=== PATIENT | male | born 1960 | race African-American/Black ===

== ENCOUNTER 2017-09-21 13:09 | Inpatient (IN) ==
[2017-09-21] MEDS ORDERED: ONDANSETRON 4 MG/2 ML VIAL IV PRN (13:57)
[2017-09-21] MEDS ORDERED: MAGNESIUM SULF RIDER 4 GM in PREMIX 1 EACH IV PRN (13:57)
[2017-09-21] MEDS ORDERED: MORPHINE 4 MG/1 ML VIAL IV PRN (13:57)
[2017-09-21] MEDS ORDERED: MAGNESIUM SULF RIDER 2 GM in PREMIX 1 EACH IV PRN (13:57)
[2017-09-21] MEDS ORDERED: ACETAMINOPHEN 325 MG TABLET PO PRN (13:57)
[2017-09-21] MEDS ORDERED: DOCUSATE SODIUM 100 MG CAPSULE PO PRN (13:57)
[2017-09-21] MEDS ORDERED: MONTELUKAST 10 MG TABLET PO SCH (14:30)
[2017-09-21 14:47] LABS: Basophils % 0.2 % (0.0-0.8); Eosinophils % 0.2 % (0.00-10.9); Hematocrit 44.6 VOL% (42.0-52.0); Hemoglobin 13.9 GM/DL (14.0-18.0); Immature Granulocytes % 6.6 %; Immature Granulocytes Absolute 0.87 #; Lymphocytes % 7.8 % (21.2-54.2); Mean Corpuscular HGB Conc 31.2 GM/DL (32-36); Mean Corpuscular Hemoglobin 28 PG (27-34); Mean Corpuscular Volume 89.9 FL (87-102); Mean Platelet Volume 11.2 FL (9.6-12.0); Monocytes # 1.2 10*3/uL (0.11-0.8); Monocytes % 8.7 % (1.7-12.7); Neutrophils # 10.2 10*3/uL (1.4-7.4); Neutrophils % 76.5 % (38.7-73.9); Platelet Count 134 T/CUMM (130-400); Red Blood Count 4.96 MC/CUMM (3.8-5.5); Red Cell Distribution Width 14.5 % (9.3-17.3); White Blood Count 13.3 T/CUMM (4-12)
[2017-09-21 15:11] LABS: Calcium 9.5 MG/DL (8.5-10.1); Osmolality,Calculated 270.1 MOS/KG (273-304); Potassium 4.2 MMOL/L (3.5-5.1); Thyroid Stimulating Hormone 0.646 uIU/ml (0.358-3.74)
[2017-09-21 15:25] LABS: Apearance,Urine CLOUDY (Clear); Bilirubin,Urine Negative (Negative); Blood, Urine Moderate mg/dL (Negative); Glucose,Urine (UA) Negative (Negative); Ketones,Urine Negative (Negative); Nitrite,Urine Negative (Negative); Protein,Urine Negative; RBC,Urine 18 /HPF (0-4); Squamous Epithelial Cell,Urine Occasional /HPF (0-10); Urine Color Yellow (Yellow); Urine Specific Gravity 1.011 (1.001-1.035); WBC,Urine 81 /HPF (0-6)
[2017-09-21] MEDS: PANTOPRAZOLE 40 MG TABLET PO SCH (15:31)
[2017-09-21] MEDS: BUDESONIDE/FORMOTEROL 160-4.5 INHALER 6 GM INH SCH ×2 (15:32→21:19)
[2017-09-21] MEDS ORDERED: NITROGLYCERIN SL 0.4 MG TABLET SL PRN (16:00)
[2017-09-21 16:01] LABS: Troponin I Only 0.019 NG/ML (0.00-0.045)
[2017-09-21 16:23] LABS: Band Neutrophils 3 % (0-10); Eosinophils 5 % (0-10); Lymphocytes 4 % (20-55); Segmented Neutrophils 76 % (50-85); Total Cells Counted 100
[2017-09-21 16:24] LABS: Macrocytosis Slight
[2017-09-21 16:25] LABS: Platelet Estimate Adequate
[2017-09-21 16:51] LABS: ABG Base Excess 9.6 MMOL/L (-2.5-2.5); ABG HCO3 33.2 MMOL/L (20-26); ABG Oxygen Saturation 92.7 % (95-100); ABG PCO2 54.3 MM HG (35-48); ABG PH 7.431 (7.35-7.45); ABG PO2 67.4 MM HG (80-95); ABG TCO2 31.1 MMOL/L (23-27)
[2017-09-21] MEDS: LEVOFLOXACIN INJ 500 MG in PREMIX 1 EACH IV SCH (19:00)
[2017-09-21 19:01] LABS: Troponin I Only 0.022 NG/ML (0.00-0.045)
[2017-09-21] MEDS: ALBUTEROL/IPRATROPIUM 3 ML NEB RESP TX SCH (19:54)
[2017-09-21] MEDS ORDERED: ROSUVASTATIN 20 MG TABLET PO SCH (21:00)
[2017-09-21] MEDS: MONTELUKAST 10 MG TABLET PO SCH (21:19)
[2017-09-22 00:22] LABS: Troponin I Only 0.022 NG/ML (0.00-0.045)
[2017-09-22] MEDS: ALBUTEROL/IPRATROPIUM 3 ML NEB RESP TX SCH ×4 (01:10→19:34)
[2017-09-22 04:47] LABS: ABG Base Excess 8.5 MMOL/L (-2.5-2.5); ABG HCO3 35.6 MMOL/L (20-26); ABG Oxygen Saturation 92.8 % (95-100); ABG PCO2 60.2 MM HG (35-48); ABG PO2 73.1 MM HG (80-95); ABG TCO2 37.5 MMOL/L (23-27)
[2017-09-22 05:45] LABS: Basophils % 0.2 % (0.0-0.8); Eosinophils % 0.2 % (0.00-10.9); Hematocrit 42.1 VOL% (42.0-52.0); Hemoglobin 13.1 GM/DL (14.0-18.0); Immature Granulocytes % 6.2 %; Immature Granulocytes Absolute 0.62 #; Lymphocytes # 0.9 10*3/uL (1.4-4.0); Lymphocytes % 8.7 % (21.2-54.2); Mean Corpuscular HGB Conc 31.1 GM/DL (32-36); Mean Corpuscular Hemoglobin 28 PG (27-34); Mean Corpuscular Volume 89.8 FL (87-102); Mean Platelet Volume 11.4 FL (9.6-12.0); Monocytes % 9.6 % (1.7-12.7); Neutrophils # 7.6 10*3/uL (1.4-7.4); Neutrophils % 75.1 % (38.7-73.9); Platelet Count 108 T/CUMM (130-400); Red Blood Count 4.69 MC/CUMM (3.8-5.5); Red Cell Distribution Width 14.5 % (9.3-17.3); White Blood Count 10.1 T/CUMM (4-12)
[2017-09-22 06:06] LABS: Hypochromasia 1+; Lymphocytes 12 % (20-55); Microcytosis 1+; Ovalocytes Slight; Segmented Neutrophils 81 % (50-85); Total Cells Counted 100
[2017-09-22 06:07] LABS: Platelet Estimate Decreased
[2017-09-22 06:11] LABS: Calcium 9.7 MG/DL (8.5-10.1); Osmolality,Calculated 271.1 MOS/KG (273-304); Potassium 4.4 MMOL/L (3.5-5.1)
[2017-09-22] MEDS: ISOSORBIDE MONONITRATE 30 MG TABLET PO SCH (08:30)
[2017-09-22] MEDS: PANTOPRAZOLE 40 MG TABLET PO SCH (08:30)
[2017-09-22] MEDS: ROSUVASTATIN 20 MG TABLET PO SCH (08:31)
[2017-09-22] MEDS: ALLOPURINOL 300 MG TABLET PO SCH ×2 (08:31→08:36)
[2017-09-22] MEDS: ASPIRIN EC 81 MG TABLET PO SCH (08:31)
[2017-09-22] MEDS: BUDESONIDE/FORMOTEROL 160-4.5 INHALER 6 GM INH SCH ×3 (08:33→21:06)
[2017-09-22] MEDS ORDERED: IPRATROPIUM 500 MCG/2.5 ML NEB RESP TX SCH (09:00)
[2017-09-22] MEDS ORDERED: ASPIRIN EC 81 MG TABLET PO SCH (09:00)
[2017-09-22] MEDS ORDERED: AMIODARONE 200 MG TABLET PO SCH (09:00)
[2017-09-22] MEDS ORDERED: METHOCARBAMOL 500 MG TABLET PO PRN (10:56)
[2017-09-22] MEDS ORDERED: KETOROLAC 30 MG/1 ML VIAL IV ONE (10:57)
[2017-09-22] MEDS ORDERED: SODIUM CHLORIDE 0.45% 1,000 ML IV SCH (11:00)
[2017-09-22] MEDS: ENOXAPARIN 40 MG/0.4 ML SYRINGE SUBCUT SCH (17:50)
[2017-09-22] MEDS: LEVOFLOXACIN INJ 500 MG in PREMIX 1 EACH IV SCH (17:50)
[2017-09-22] MEDS: MONTELUKAST 10 MG TABLET PO SCH (21:05)
[2017-09-22] MEDS: ZALEPLON 5 MG CAPSULE PO PRN (21:15)
[2017-09-23] MEDS: ALBUTEROL/IPRATROPIUM 3 ML NEB RESP TX SCH ×4 (01:17→19:27)
[2017-09-23 03:45] LABS: Basophils % 0.4 % (0.0-0.8); Eosinophils % 0.3 % (0.00-10.9); Hematocrit 43.9 VOL% (42.0-52.0); Hemoglobin 13.5 GM/DL (14.0-18.0); Immature Granulocytes % 6.3 %; Immature Granulocytes Absolute 0.62 #; Mean Corpuscular HGB Conc 30.8 GM/DL (32-36); Mean Corpuscular Hemoglobin 28 PG (27-34); Mean Corpuscular Volume 89.8 FL (87-102); Monocytes # 1.2 10*3/uL (0.11-0.8); Monocytes % 11.8 % (1.7-12.7); Neutrophils % 71.2 % (38.7-73.9); Platelet Count 118 T/CUMM (130-400); Red Blood Count 4.89 MC/CUMM (3.8-5.5); Red Cell Distribution Width 14.3 % (9.3-17.3); White Blood Count 9.8 T/CUMM (4-12)
[2017-09-23 04:13] LABS: Calcium 9.5 MG/DL (8.5-10.1); Osmolality,Calculated 267.2 MOS/KG (273-304); Potassium 4.1 MMOL/L (3.5-5.1)
[2017-09-23 04:35] LABS: ABG Base Excess 5.3 MMOL/L (-2.5-2.5); ABG HCO3 32.3 MMOL/L (20-26); ABG Oxygen Saturation 93.2 % (95-100); ABG PCO2 57.3 MM HG (35-48); ABG PH 7.369 (7.35-7.45); ABG PO2 72.8 MM HG (80-95); ABG TCO2 34.1 MMOL/L (23-27)
[2017-09-23 04:36] LABS: Allen Test Positive
[2017-09-23 05:26] LABS: Band Neutrophils 3 % (0-10); Lymphocytes 12 % (20-55); Metamyelocytes 1 %; Platelet Estimate Decreased; Segmented Neutrophils 70 % (50-85); Total Cells Counted 100
[2017-09-23] MEDS: ROSUVASTATIN 20 MG TABLET PO SCH (09:26)
[2017-09-23] MEDS: PANTOPRAZOLE 40 MG TABLET PO SCH (09:26)
[2017-09-23] MEDS: ALLOPURINOL 300 MG TABLET PO SCH ×2 (09:26→09:35)
[2017-09-23] MEDS: ASPIRIN EC 81 MG TABLET PO SCH (09:26)
[2017-09-23] MEDS: ISOSORBIDE MONONITRATE 30 MG TABLET PO SCH (09:26)
[2017-09-23] MEDS: BUDESONIDE/FORMOTEROL 160-4.5 INHALER 6 GM INH SCH ×2 (09:27→20:51)
[2017-09-23] MEDS ORDERED: THEOPHYLLINE ER 100 MG TABLET PO SCH (11:30)
[2017-09-23] MEDS: THEOPHYLLINE ER (24 HR) 200 MG CAPSULE PO SCH (14:03)
[2017-09-23] MEDS: ENOXAPARIN 40 MG/0.4 ML SYRINGE SUBCUT SCH (14:03)
[2017-09-23] MEDS: ALBUTEROL 2 MG TABLET PO SCH (14:03)
[2017-09-23] MEDS: LEVOFLOXACIN INJ 500 MG in PREMIX 1 EACH IV SCH (15:12)
[2017-09-23] MEDS: ZALEPLON 5 MG CAPSULE PO PRN (20:50)
[2017-09-23] MEDS: MONTELUKAST 10 MG TABLET PO SCH (20:50)
[2017-09-24] MEDS: ALBUTEROL/IPRATROPIUM 3 ML NEB RESP TX SCH ×4 (01:09→19:31)
[2017-09-24] MEDS: ALBUTEROL 2 MG TABLET PO SCH ×5 (01:09→22:50)
[2017-09-24] MEDS: ASPIRIN EC 81 MG TABLET PO SCH (08:33)
[2017-09-24] MEDS: ISOSORBIDE MONONITRATE 30 MG TABLET PO SCH (08:33)
[2017-09-24] MEDS: ROSUVASTATIN 20 MG TABLET PO SCH (08:33)
[2017-09-24] MEDS: ALLOPURINOL 300 MG TABLET PO SCH (08:33)
[2017-09-24] MEDS: BUDESONIDE/FORMOTEROL 160-4.5 INHALER 6 GM INH SCH ×2 (08:34→20:42)
[2017-09-24] MEDS: PANTOPRAZOLE 40 MG TABLET PO SCH (08:34)
[2017-09-24] MEDS ORDERED: KETOROLAC 30 MG/1 ML VIAL IV ONE (09:52)
[2017-09-24] MEDS: ENOXAPARIN 40 MG/0.4 ML SYRINGE SUBCUT SCH (15:25)
[2017-09-24] MEDS: LEVOFLOXACIN INJ 500 MG in PREMIX 1 EACH IV SCH (15:25)
[2017-09-24] MEDS: METHOCARBAMOL 500 MG TABLET PO SCH ×2 (15:25→20:41)
[2017-09-24] MEDS: THEOPHYLLINE ER (24 HR) 200 MG CAPSULE PO SCH (18:04)
[2017-09-24] MEDS: ZALEPLON 5 MG CAPSULE PO PRN (20:40)
[2017-09-24] MEDS: MONTELUKAST 10 MG TABLET PO SCH (20:40)
[2017-09-25] MEDS: ALBUTEROL/IPRATROPIUM 3 ML NEB RESP TX SCH ×4 (00:44→19:47)
[2017-09-25] MEDS: ALBUTEROL 2 MG TABLET PO SCH ×3 (05:52→22:49)
[2017-09-25] MEDS: ISOSORBIDE MONONITRATE 30 MG TABLET PO SCH (08:41)
[2017-09-25] MEDS: PANTOPRAZOLE 40 MG TABLET PO SCH (08:42)
[2017-09-25] MEDS: ASPIRIN EC 81 MG TABLET PO SCH (08:42)
[2017-09-25] MEDS: ALLOPURINOL 300 MG TABLET PO SCH (08:42)
[2017-09-25] MEDS: BUDESONIDE/FORMOTEROL 160-4.5 INHALER 6 GM INH SCH ×2 (08:42→20:33)
[2017-09-25] MEDS: ROSUVASTATIN 20 MG TABLET PO SCH (08:42)
[2017-09-25] MEDS: METHOCARBAMOL 500 MG TABLET PO SCH ×3 (08:42→20:33)
[2017-09-25] MEDS ORDERED: BISACODYL 5 MG TABLET PO ONE (14:00)
[2017-09-25] MEDS ORDERED: MAGNESIUM HYDROXIDE SUSP 30 ML UDCUP PO PRN (14:01)
[2017-09-25] MEDS: ENOXAPARIN 40 MG/0.4 ML SYRINGE SUBCUT SCH (14:10)
[2017-09-25] MEDS: LEVOFLOXACIN INJ 500 MG in PREMIX 1 EACH IV SCH (16:44)
[2017-09-25] MEDS: THEOPHYLLINE ER (24 HR) 200 MG CAPSULE PO SCH (16:44)
[2017-09-25] MEDS: MONTELUKAST 10 MG TABLET PO SCH (20:32)
[2017-09-25] MEDS: ZALEPLON 5 MG CAPSULE PO PRN (20:33)
[2017-09-26] MEDS: ALBUTEROL/IPRATROPIUM 3 ML NEB RESP TX SCH ×3 (00:13→13:40)
[2017-09-26] MEDS: ALBUTEROL 2 MG TABLET PO SCH (06:26)
[2017-09-26] MEDS: ALLOPURINOL 300 MG TABLET PO SCH (09:20)
[2017-09-26] MEDS: ROSUVASTATIN 20 MG TABLET PO SCH (09:20)
[2017-09-26] MEDS: PANTOPRAZOLE 40 MG TABLET PO SCH (09:20)
[2017-09-26] MEDS: ISOSORBIDE MONONITRATE 30 MG TABLET PO SCH (09:21)
[2017-09-26] MEDS: ASPIRIN EC 81 MG TABLET PO SCH (09:21)
[2017-09-26] MEDS: METHOCARBAMOL 500 MG TABLET PO SCH ×2 (09:21→14:34)
[2017-09-26] MEDS: BUDESONIDE/FORMOTEROL 160-4.5 INHALER 6 GM INH SCH (09:21)
[2017-09-26 12:06] VITALS: BP 113/75
[2017-09-26] MEDS: ENOXAPARIN 40 MG/0.4 ML SYRINGE SUBCUT SCH (14:33)
[2017-09-26] MEDS: LEVOFLOXACIN INJ 500 MG in PREMIX 1 EACH IV SCH (16:07)
[2017-09-26] MEDS: THEOPHYLLINE ER (24 HR) 200 MG CAPSULE PO SCH (16:42)
== END 2017-09-26 16:52 | disposition hospice, home (50) | DRG 291 ==
LOC: INTOOBSV 13:46 → N.ICU 13:46 → N.TELEN 09-22 17:40
PROVIDERS: ADMIT Internal Medicine Interventional Cardiology; ATTEND Internal Medicine Interventional Cardiology